=== PATIENT | male | born 1990 | race Caucasian/White ===

== ENCOUNTER 2020-07-15 18:44 | Emergency (ER) | payer BC, SELFPAY ==
[2020-07-15 19:29] VITALS: BP 125/77; PULSE 80; RESP 16; TEMP 36.7; O2SAT 97; BMI 59.4
--- NOTE | 2020-07-15 20:21 | ED.EXTPRO ---
HPI - Extremity Problem General Chief complaint: Extremity Injury, Upper <TOPHER Hendrix - Last Filed: 07/15/20 20:44> Stated complaint: Arm Numbness <TOPHER Hendrix - Last Filed: 07/15/20 20:44> Time Seen by Provider: 07/15/20 20:21 <TOPHER Hendrix - Last Filed: 07/15/20 20:44> Source: patient <TOPHER Hendrix - Last Filed: 07/15/20 20:44> Mode of arrival: ambulatory <TOPHER Hendrix - Last Filed: 07/15/20 20:44> Limitations: no limitations <TOPHER Hendrix - Last Filed: 07/15/20 20:44> History of Present Illness HPI Narrative: 29 y/o male with history of <TOPHER Hendrix - Last Filed: 07/15/20 20:44> MD Complaint: extremity pain <TOPHER Hendrix - Last Filed: 07/15/20 20:44> Onset (ago): week(s) (2) <TOPHER Hnedrix - Last Filed: 07/15/20 20:44> Pain Consistency: intermittent <TOPHER Hendrix - Last Filed: 07/15/20 20:44> Location: left and right <TOPHER Hendrix - Last Filed: 07/15/20 20:44> Severity scale (1-10): 5 <TOPHER Hendrix - Last Filed: 07/15/20 20:44> Quality: sharp <TOPHER Hendrix - Last Filed: 07/15/20 20:44> Radiation: distal <TOPHER Hendrix - Last Filed: 07/15/20 20:44> Relieving factors: rest <TOPHER Hendrix - Last Filed: 07/15/20 20:44> Exacerbating factors: palpation <TOPHER Hednrix - Last Filed: 07/15/20 20:44> Associated symptoms: denies other symptoms <TOPHER Hendrix - Last Filed: 07/15/20 20:44> Related Data Home medications: Previous Rx's Medication Instructions Recorded ibuprofen 600 mg PO Q8H PRN #30 tab 07/15/20 <TOPHER Hendrix - Last Filed: 07/15/20 20:44> Allergies/Adverse reactions: Allergies Allergy/AdvReac Type Severity Reaction Status Date / Time No Known Allergies Allergy Unverified 06/29/20 15:59 <TOPHER Hendrix - Last Filed: 07/15/20 20:44> Review of Systems Review of Systems: Constitutional: No Fever, No Chills ENT/Mouth: No sore throat, No Rhinorrhea, No Swallowing Difficulty Eyes: No Eye Pain, No Swelling, No Redness Cardiovascular: No Chest Pain or SOB, No Orthopnea Respiratory: No Cough, No Sputum, No Wheezing or dyspnea Gastrointestinal: No Nausea, No Vomiting, No Diarrhea, No abdominal Pain, No Hematochezia, No Melena Genitourinary: No Dysuria, No Urinary Frequency, No Hematuria Musculoskeletal: No joint pain, No Myalgias Skin: + skin Lesions (lipomas), No rash Neuro: No Weakness, No Numbness, No Dizziness, No Headache Psych: No Anxiety/Panic, No Depression Heme/Lymph: No Bruising, No Lymphadenopathy Endocrine: No Polyuria, No Polydipsia All other 10 point ROS are negative. <TOPHER Hendrix Last Filed: 07/15/20 20:44> FOR[facility]LY [facility], [facility] Past Medical History Medical History: Medical History (Updated 07/16/20 @ 00:00 by Gianluca Junior) Blood clot in vein Lipoma of arm MRSA (methicillin resistant Staphylococcus aureus) infection Pneumonia <TOPHER Hendrix Last Filed: 07/15/20 20:44> Surgical History: Surgical History (Updated 07/15/20 @ 19:39 by Meenakshi Grover) History of ankle surgery <TOPHER Hendrix Last Filed: 07/15/20 20:44> Social History Social History: Social History Alcohol intake: current Alcohol intake frequency: holidays/special occasions only Smoking Status: Current every day smoker Smoked in Last 30 Days: Yes Use of substances other than those prescribed or required for medical reasons: No Advance Directives: No Advance Directives Information Provided: No <TOPHER Hendrix Last Filed: 07/15/20 20:44> Physical Exam Vital Signs and I&O and Narrative: Vital Signs and I&O: Vital Signs Temp 98.1 F 07/15/20 19:29 Pulse 80 07/15/20 19:29 Resp 16 07/15/20 19:29 BP 125/77 07/15/20 19:29 Pulse Ox 97 07/15/20 19:29 Intake & Output 07/15/20 07/15/20 07/16/20 06:59 18:59 06:59 Weight 210 kg Body Mass Index 59.4 Appearance: Alert. Oriented X3. No acute distress. Eyes: Pupils equal, round and reactive to light. ENT: Pharynx normal. Neck: Normal inspection. Neck supple. CVS: Normal heart rate and rhythm. Pulses normal. Respiratory: No respiratory distress. Breath sounds normal. Abdomen: Soft and nontender. +BS x4 Skin: Skin warm and dry. Normal skin color. Normal skin turgor. No rashes. Extremities: bilateral mobile masses of distal biceps without tenderness, erythema or flutuance consistent with lipomas. Strength 5/5 UE, NV intact. Neuro: Oriented X 3. No motor deficit. No sensory deficit. Non-focal <TOPHER Hendrix - Last Filed: 07/15/20 20:44> Vital Signs and I&O: Vital Signs Temp 98.1 F 07/15/20 19:29 Pulse 80 07/15/20 19:29 Resp 16 07/15/20 19:29 BP 125/77 07/15/20 19:29 Pulse Ox 97 07/15/20 19:29 Intake & Output 07/15/20 07/15/20 07/16/20 06:59 18:59 06:59 Weight 210 kg Body Mass Index 59.4 <Dangelo Rae DO - Last Filed: 07/16/20 01:22> Course Course Hospital Course: acute on chronic UE pain with intermittent tingling, possibly due to lipomas on upper extremities compressing a nerve. doubt DVT, no other signs and no risk factors. He has no focal decifits on exam and strength is normal. He has no PCP and would like a referral to one as well as a surgeon for removal of the lipomas. Will start trial of NSAID to help with inflammation. patient agrees with plan. stable for d/c. <TOPHER Hendrix - Last Filed: 07/15/20 20:44> MDM - Extremity (Nontraumatic) Differential Diagnosis Differential diagnosis: Likely cellulitis, superficial thrombophlebitis and deep venous thrombosis of upper extremity <TOPHER Hendrix Last Filed: 07/15/20 20:44> Discharge Plan Discharge Clinical Impression: Paresthesia and pain of both upper extremities, Lipoma of arm <TOPHER Hendrix Last Filed: 07/15/20 20:44> Patient Disposition: Home, Self-Care <TOPHER Hendrix - Last Filed: 07/15/20 20:44> Instructions: Paresthesia (ED), Lipoma (ED) <TOPHER Hendrix Last Filed: 07/15/20 20:44> Additional Instructions: Come back to the ER or call 911 if you develop weakness, persistent numbness, loss of function of your arms or hands. Follow up with a Primary Care Doctor and a Surgeon for removal of the lipomas. <TOPHER Hendrix - Last Filed: 07/15/20 20:44> Prescriptions: New ibuprofen 600 mg tablet 600 mg PO Q8H PRN (Reason: pain) Qty: 30 RF: 0 <TOPHER Hendrix Last Filed: 07/15/20 20:44> Referrals: Jonathan Cain MD [Physician] - 2 days <TOPHER Hendrix Last Filed: 07/15/20 20:44> Interventions: ED Discharge Assessment Last Done: 07/15/20 21:26 <TOPHER Hendrix Last Filed: 07/15/20 20:44> Discharge Date/Time: 07/15/20 21:10 <TOPHER Hendrix Last Filed: 07/15/20 20:44>
== END 2020-07-15 21:10 | disposition home or self-care (01) ==
PROVIDERS: Emergency Provider Emergency Medicine
DX: R20.2 Paresthesia of skin (principal); M79.602 Pain in left arm; M79.601 Pain in right arm; D17.22 Benign lipomatous neoplasm of skin and subcutaneous tissue of left arm; D17.21 Benign lipomatous neoplasm of skin and subcutaneous tissue of right arm; F17.200 Nicotine dependence, unspecified, uncomplicated; Z86.718 Personal history of other venous thrombosis and embolism; Z86.14 Personal history of Methicillin resistant Staphylococcus aureus infection
CPT/HCPCS: 99283; 99284

== ENCOUNTER 2020-11-04 14:56 | Emergency (ER) | payer BC, SELFPAY ==
[2020-11-04 15:01] VITALS: BP 162/90; PULSE 90; RESP 18; TEMP 36.4; O2SAT 98; BMI 28.2
--- NOTE | 2020-11-04 15:21 | ED_ITS ---
HPI - General Adult General Chief complaint: General Medical Stated complaint: sinus infection Time Seen by Provider: 11/04/20 15:04 Source: patient Mode of arrival: ambulatory Limitations: no limitations History of Present Illness HPI narrative: 29 yo male here with sinus pressure/pain/SÁNCHEZ, nasal congestion x several days. No cough, fever, chills, ear pain, sore throat. Onset (ago): day(s) Related Data Previous Rx's Medication Instructions Recorded ibuprofen 600 mg PO Q8H PRN #30 tab 07/15/20 amoxicillin-pot clavulanate 1 tab PO BID #14 tab 11/04/20 [Augmentin] ibuprofen 600 mg PO Q8H PRN #20 tab 11/04/20 prednisone 40 mg PO DAILY #10 tab 11/04/20 Allergies Allergy/AdvReac Type Severity Reaction Status Date / Time No Known Allergies Allergy Unverified 06/29/20 15:59 Review of Systems Review of Systems: Yes all other systems are reviewed and are negative Constitutional: Constitutional: Reports no additional constitutional complaints, Denies body ache(s), Denies chills, Denies fever(s), Denies headache(s) and Denies weakness Eyes: Eyes: Reports no additional eye complaints and Denies change in vision ENT: Reports system reviewed and no additional complaints, except as documented, Denies dizziness, Denies headache(s), Reports nasal congestion, Denies nasal discharge, Denies neck pain, Reports sinus pain and Reports sinus pressure Cardiovascular: Cardiovascular: Reports no additional cardiovascular complaints, Denies chest pain, Denies leg edema and Denies dyspnea Respiratory: Respiratory: Reports no additional respiratory complaints, Denies cough and Denies dyspnea Gastrointestinal: Gastrointestinal: Reports no additional gastrointestinal complaints, Denies abdominal pain, Denies diarrhea, Denies nausea and Denies vomiting Genitourinary: Genitourinary: Denies urinary incontinence Musculoskeletal: Musculoskeletal: Reports no additional musculoskeletal complaints, Denies back pain, Denies arthralgias, Denies joint swelling, Denies neck pain, Denies numbness and Denies tingling Integumentary/Breasts: Skin/Breast: Reports system reviewed and no additional complaints, except as docu and Denies rash Neurologic: Reports system reviewed and no additional complaints, except as documented, Denies Abnormal speech present, Denies dizziness, Denies headache (s), Denies numbness, Denies tingling and Denies weakness PMF Past Medical History Attestation statement: The following information was validated with the patient. Source: old records reviewed and nursing notes reviewed Medical History Blood clot in vein Lipoma of arm MRSA (methicillin resistant Staphylococcus aureus) infection Pneumonia Surgical History History of ankle surgery Social History Social History Alcohol intake: current Alcohol intake frequency: holidays/special occasions only Smoking Status: Current every day smoker Advance Directives: No Advance Directives Information Provided: Yes Physical Exam Vital Signs: Vital Signs: Last Vital Signs Temp 97.6 F 11/04/20 15:01 Pulse 90 11/04/20 15:01 Resp 18 11/04/20 15:01 BP 162/90 H 11/04/20 15:01 Pulse Ox 98 11/04/20 15:01 Body Mass Index 28.2 Const: General: cooperative, healthy appearing, comfortable and no acute distress Orientation/consciousness: patient oriented x3 Limitations: no limitations HENMT: Head: Yes normal to inspection Ears: hearing grossly normal bilaterally General nose exam: Normal external nose present and Abnormal mucous membranes and turbinates present (erythema ) erythematous Face and sinus: Yes normal facial exam and Yes sinus tenderness (frontal/maxillary tenderness) Mouth: Normal oral and palatal mucosa present Throat: Yes posterior oropharynx normal Eyes: General: appearance normal, both eyes and all related structures Pupils: Equal, round and reactive pupils present Neck: Neck: Yes normal visual inspection Chest: Chest palpation & inspection: normal inspection of the chest Resp: Effort & Inspection: normal respiratory effort Auscultation: clear to auscultation bilaterally Cardio: Rate: regular rate Rhythm: regular rhythm Peripheral pulses: Peripheral pulses 2+ throughout GI: Inspection: Yes normal to inspection Palpation (GI): Soft to palpation and nontender Auscultation: normal bowel sounds Back/Spine/Pelvis: Thoracic/Lumbar Spine: thoracic and lumbar spine normal to inspection Skin: General skin exam: no rashes or lesions noted Neuro: General: patient oriented x3, no focal motor deficits and normal sensation to monofilament Cranial nerves: Yes Equal, round and reactive pupils present Cognition (Neuro): normal cognition Speech: No Abnormal speech present Gait exam (Neuro): Normal gait present Motor exam (neuro): 5/5 motor strength present throughout Extrem: General: Yes normal to inspection Course Course Course Narrative: Exam consistent with sinusitis. Reviewed worrisome signs and symptoms and when to return to the emergency department. Comfortable discharge home. Discharge Plan Discharge Clinical Impression: Sinusitis Qualifiers: Sinusitis location: frontal Chronicity: acute Recurrence: non-recurrent Qualified Code(s): J01.10 - Acute frontal sinusitis, unspecified Patient Disposition: Home, Self-Care Instructions: Sinusitis (ED) Prescriptions: New amoxicillin-pot clavulanate [Augmentin] 875-125 mg tablet 1 tab PO BID Qty: 14 RF: 0 prednisone 20 mg tablet 40 mg PO DAILY Qty: 10 RF: 0 ibuprofen 600 mg tablet 600 mg PO Q8H PRN (Reason: fever or pain) Qty: 20 RF: 0 No Action ibuprofen 600 mg tablet 600 mg PO Q8H PRN (Reason: pain) Qty: 30 RF: 0 Referrals: Physician,Unknown [Primary Care Provider] - 2 days Interventions: ED Discharge Assessment Last Done: 11/04/20 15:28 Discharge Date/Time: 11/04/20 15:30
== END 2020-11-04 15:30 | disposition home or self-care (01) ==
PROVIDERS: Emergency Provider Internal Medicine
DX: J01.10 Acute frontal sinusitis, unspecified (principal); F17.200 Nicotine dependence, unspecified, uncomplicated; Z79.899 Other long term (current) drug therapy
CPT/HCPCS: 99283

== ENCOUNTER 2021-03-12 05:14 | Inpatient (IN) | payer OTHER, SELFPAY ==
[2021-03-12] VITALS (8 sets, daily range): RESP 16–22; BMI 29.0
[2021-03-12] MEDS: Haloperidol Lactate 5 MG/ML VIAL IM (06:05)
[2021-03-12] MEDS: LORazepam 2 MG/ML VIAL IM (06:06)
--- NOTE | 2021-03-12 06:10 | PC.NURSE ---
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
--- NOTE | 2021-03-12 06:51 | PC.NURSE ---
Patient in bed appears sleeping, respiration +/=/non-labored bilaterally, Police left, plan to have him assessed by [facility] team, will continue to monitor.
--- NOTE | 2021-03-12 09:23 | ECG_ITS ---
Test Reason : MED CLEARANCE Blood Pressure : / mmHG Vent. Rate : 084 BPM Atrial Rate : 084 BPM P-R Int : 148 ms QRS Dur : 092 ms QT Int : 350 ms P-R-T Axes : 072 049 015 degrees QTc Int : 413 ms Normal sinus rhythm Normal ECG When compared with ECG of 01-MAY-2014 16:45, No significant change was found Referred By: Warner Magallanes Electronically Signed By:DAVID SOTO
--- NOTE | 2021-03-12 09:34 | PC.NURSE ---
hpd dropped off pt's keys and wallet, no $. secured in pt's locker #6
--- NOTE | 2021-03-12 09:55 | MHC.CARE ---
51A filed. Pt not aware. CARE Team notified Pts , Arin.
--- NOTE | 2021-03-12 13:04 | PC.NURSE ---
[employer] in to see the pt and serve a suspencion of his [employer] license, paperworkleft in locker #6
[2021-03-12 13:25] LABS: MANUAL DIFF FLAG NO
[2021-03-12 13:28] LABS: Basophils Percent Auto 0.4 % (0-2); Eosinophils Absolute Auto 0.2 X10*3/uL (0.0-0.4); Eosinophils Percent Auto 4.6 % (0-4); Hematocrit 44.6 % (42-52); Hemoglobin 15.5 g/dl (14.0-18.0); Lymphocytes Percent Auto 40.8 % (20-40); Mean Corpuscular HGB Conc 34.8 g/dl (31.0-36.0); Mean Corpuscular Hemoglobin 30.3 pg (27.0-33.0); Mean Corpuscular Volume 87.1 fL (80-98); Mean Platelet Volume 9.3 fL (9.4-12.4); Monocytes Absolute Auto 0.4 X10*3/uL (0.1-1.2); Neutrophils Absolute Auto 2.3 X10*3/uL (2.0-8.3); Neutrophils Percent Auto 46.2 % (45-73); Platelet Count 232 X10*3/uL (160-400); Red Blood Count 5.12 X10*6/uL (4.60-5.80); Red Cell Distribution Width 12.5 % (11.0-16.0)
--- NOTE | 2021-03-12 13:30 | PC.NURSE ---
blood drawn, pt refused covid test, states that he will not allow it and that he knows how things work and I'll do my time here for a couple days and then sign myself out . pt aware that he's not able to leave
[2021-03-12 13:50] LABS: Alanine Aminotransferase 39 U/L (0-40); Albumin Level 4.4 g/dL (3.5-5.0); Alkaline Phosphatase 71 U/L (39-117); Anion Gap 11 (12-20); Aspartate Amino Transferase 36 U/L (5-37); Bilirubin Direct 0.3 mg/dL (0.0-0.5); Bilirubin Total 0.9 mg/dL (0.0-1.0); Blood Urea Nitrogen 9 mg/dL (9-16); Calcium 9.1 mg/dL (8.4-10.2); Carbon Dioxide 28 mmol/L (22-29); Chloride 108 mmol/L (96-108); Creatinine Clr Calc Pharmacy 119.8; Estimated Glomerular Filt Rate > 60; Glucose Random 91 mg/dL (60-115); Potassium 4.2 mmol/L (3.3-5.1); Sodium 143 mmol/L (135-145); Total Protein 7.1 g/dL (6.5-8.0)
--- NOTE | 2021-03-12 15:12 | PC.NURSE ---
Report taken from Russell rn. Per Russell: pt is extremely aggressive with staff and was given 5mg Haldol and 2mg Ativan prior to 7am shift change. Pt has slept most of the morning. pt is now 12 inpatient bedsearch. [employer] suspended [facility], 51a was filed. Pt is not aware. pt refuses ekg and covid swab because i know how this work's i'll wait three days then sign myself out . plan at this time is for patient to remain at [facility] on section [facility]. During initial rounds; pt was easily awoken to voice and shook head when asked if he needed anything. Plan at this time is to monitor needs and occasionally offer VS/COVID swab/EKG when ambulating around milieu.
--- NOTE | 2021-03-12 16:27 | PC.NURSE ---
pt out in milieu area. pt requesting to be discharged home. Inpatient/section 12 bed search reexplained to patient. Pt stated I want to make moves to get out of here. pt began washing face and neck in sink. 1629: pt agreeable to covid swab and EKG at this time. Swab collected and [facility] sent out to grab ekg machine.
--- NOTE | 2021-03-12 16:40 | PC.NURSE ---
security called. pt's father/brothers are in waiting room seeking visitation. at this time, one visitor will be allowed at a time, after belongings were searched by security. older brother now in pod. monitoring on cameras at this time.
[2021-03-12 16:51] LABS: COVID-19 Test Negative (Negative); IDNOW Serial# 9DD0AD1C
--- NOTE | 2021-03-12 20:07 | PC.NURSE ---
Patient in bed appears sleeping, no distress observed/reported, will continue to monitor
--- NOTE | 2021-03-12 21:54 | PC.NURSE ---
Patient ate his supper, showered, changed attire, provided urine sample of UA, calm and quiet, denied distress, curretnly in bed lying, resting quietly, will continue to monitor.
[2021-03-12 22:17] LABS: Amphetamine Screen Urine Not Detected (Not Detect); Barbiturates, Urine Not Detected (Not Detect); Benzodiazepines Screen Urine Not Detected (Not Detect); Cannabinoid Screen Urine Not Detected (Not Detect); Cocaine Screen Urine Not Detected (Not Detect); Opiate Screen Urine Not Detected (Not Detect); Phencyclidine Screen Urine Not Detected (Not Detect)
[2021-03-13 04:25] VITALS: BP 130/82; PULSE 93; RESP 17; TEMP 36.6; O2SAT 96
--- NOTE | 2021-03-13 07:00 | PC.NURSE ---
patient appears to be asleep at present with even respirations patient appears in no distress, received report from prior RN.
[2021-03-13 08:23] VITALS: BP 135/88; PULSE 100; RESP 15; TEMP 36.7; O2SAT 100
[2021-03-13] MEDS: Acetaminophen 325 MG TABLET 650 MG PO (13:13)
--- NOTE | 2021-03-13 15:28 | MHC.CARE ---
CV reviewed and signed with pt. Plan for admission to inpt unit this evening.
[2021-03-13 19:14] VITALS: BP 134/91; PULSE 85; TEMP 36.7
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
[2021-03-13] MEDS: traZODone HCL 50 MG TABLET PO (21:25)
[2021-03-14 06:37] LABS: Glucose, Whole Blood 100 mg/dL (60-115)
[2021-03-14 08:27] VITALS: BP 130/86; PULSE 86; TEMP 36.6
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
[2021-03-14] MEDS: FLUoxetine HCl Oral Solution 20 MG/5 ML SOLUTION 10 MG PO (13:56)
[2021-03-14 18:00] VITALS: BP 125/77; PULSE 93; TEMP 36.4; O2SAT 97
[2021-03-14] MEDS: Melatonin 3 MG TABLET PO (21:15)
[2021-03-15] MEDS: Melatonin 3 MG TABLET PO ×2 (03:51→21:45)
[2021-03-15 04:57] LABS: Glucose, Whole Blood 105 mg/dL (60-115)
[2021-03-15 05:00] VITALS: BP 134/73; PULSE 75; TEMP 36.1; O2SAT 96
[2021-03-15] MEDS: FLUoxetine HCl 10 MG CAPSULE PO (09:12)
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
[2021-03-15 13:28] VITALS: BMI 29.0
[2021-03-15 18:00] VITALS: BP 130/82; PULSE 82; TEMP 36.4
[2021-03-16] MEDS: hydrOXYzine HCL 25 MG TABLET PO (00:21)
[2021-03-16] MEDS: Melatonin 3 MG TABLET PO (00:21)
[2021-03-16 06:20] VITALS: BP 120/65; PULSE 61; RESP 18; TEMP 36.6; O2SAT 97
[2021-03-16] MEDS: FLUoxetine HCl 10 MG CAPSULE PO (08:20)
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
--- NOTE | 2021-03-16 11:20 | P.DS_ITS ---
DS: Providers Provider Date of Service: 03/16/21 Date of admission: 03/13/21 16:10 Primary care physician: Lani Physician Attending physician on admission: Ahsan Painting Attending physician on discharge: Ahsan Painting DS: Diagnosis Discharge Diagnosis (1) Chronic post-traumatic stress disorder (PTSD): Status: Acute (2) Alcohol abuse: Status: Acute (3) MDD (major depressive disorder), recurrent episode, moderate: Status: Acute DS: Medications Discharge Medications Home Medications: Previous Rx's Medication Instructions Recorded fluoxetine 10 mg PO DAILY 30 Days #30 cap 03/16/21 hydroxyzine HCl 25 mg PO BEDTIME PRN 30 Days #60 03/16/21 tab melatonin 3 mg PO BEDTIME PRN 30 Days #30 tab 03/16/21 Discharge Plan Discharge Patient Disposition: Home, Self-Care Discharge Diagnosis: PTSD, chronic Referrals: Psych Prescriber: Maggie Archibald-[facility] [Other] - 04/04/21 11:00 am (You will receive an email with a link for video session ) Therapist: Stephanie Aguilera ([facility] [place]) [Other] - 03/17/21 11:30 am Jamari Ramirez PA [Physician [employer] [facility]] - 04/17/21 10:00 am (via phone) Discharge Medications: New melatonin 3 mg Tablet 3 mg PO BEDTIME PRN (Reason: insomnia) 30 Days Qty: 30 RF: 0 fluoxetine 10 mg Capsule 10 mg PO DAILY 30 Days Qty: 30 RF: 0 hydroxyzine HCl 25 mg Tablet 25 mg PO BEDTIME PRN (Reason: Anxiety) 30 Days Qty: 60 RF: 0 Discontinued ibuprofen 600 mg tablet 600 mg PO Q8H PRN (Reason: pain) Qty: 30 RF: 0 amoxicillin-pot clavulanate [Augmentin] 875-125 mg tablet 1 tab PO BID Qty: 14 RF: 0 prednisone 20 mg tablet 40 mg PO DAILY Qty: 10 RF: 0 ibuprofen 600 mg tablet 600 mg PO Q8H PRN (Reason: fever or pain) Qty: 20 RF: 0 Discharge Orders: Discharge Order (Routine); Ordered 03/16/21 Ordered By: Ahsan Painting Diet: regular diet Activity on Discharge: As tolerated Stand Alone Forms: Patient Portal Discharge page, Community Support Care Plan Goals: Maintain mood and safe behaviors Take medications as prescribed Continue to pursue sobriety Practice coping skills Continue with outpatient providers and reach out to them as needed Health Concerns: Mood instability and behaviors Depression and PTSD Plan of Treatment: Follow up with your PCP regarding?. (regarding above concerns) Take medications as prescribed Assessment: Risk assessment at time of discharge: Patient has been observed closely by nursing and unit staff throughout admission; patient has not engaged in any behaviors that suggest dangerousness to self or others and has demonstrated appropriate behaviors and impulse control. Patient was interviewed prior to discharge and found to be fully oriented and without any SI or HI. Patient has insight and demonstrates good judgment in terms of wanting to pursue treatment. Patient is not in imminent risk of harm to self or others and has a safety plan that includes presenting to the closest ER or calling 911 if feeling unsafe. Mental Status Exam Mental Status Exam Narrative: Pt is alert and oriented; behavior is cooperative, friendly and calm; patient is not in distress; dressed in casual attire with adequate hygiene; mood is described as good and affect congruent; eye contact appropriate; Speech is normal rate, volume and prosody and not pressured; no psychomotor agitation/retardation present; thought process is organized, linear, logical and goal directed. Thought content is on continuing treatment and otherwise pertinent to relevant topics and without any delusional content, paranoid ideations or grandiosity; denies any SI/HI. There is no evidence of perceptual disturbance. Patients insight and judgment appear intact. Data Data Completed and Pending Completed studies during hospitalization [Text1]: 03/12/21 03/12/21 03/12/21 13:19 13:19 16:31 WBC 5.0 RBC 5.12 Hgb 15.5 Hct 44.6 MCV 87.1 MCH 30.3 MCHC 34.8 RDW 12.5 Plt Count 232 MPV 9.3 L Immature Gran % (Auto) 0.0 Neut % (Auto) 46.2 Lymph % (Auto) 40.8 H [place] % (Auto) 8.0 Eos % (Auto) 4.6 H Baso % (Auto) 0.4 Lymph # (Auto) 2.0 [place] # (Auto) 0.4 Eos # (Auto) 0.2 Baso # (Auto) 0.0 Abs Immat Gran (auto) 0.00 Absolute Neuts (auto) 2.3 Absolute Nucleated RBC 0.000 Nucleated RBC % (auto) 0.0 Sodium 143 Potassium 4.2 Chloride 108 Carbon Dioxide 28 Anion Gap 11 L BUN 9 Creatinine 1.10 Estim Creat Clear Calc 119.8 Estimated GFR > 60 POC Glucose Random Glucose 91 Calcium 9.1 Total Bilirubin 0.9 Direct Bilirubin 0.3 AST 36 ALT 39 Alkaline Phosphatase 71 Total Protein 7.1 Albumin 4.4 Urine Opiates Screen Ur Barbiturates Screen Ur Phencyclidine Scrn Ur Amphetamines Screen U Benzodiazepines Scrn Urine Cocaine Screen U Marijuana (THC) Screen COVID-19 ([facility]) Negative COVID-19 Clin Com See Note 03/12/21 03/14/21 03/15/21 21:36 06:19 04:52 WBC RBC Hgb Hct MCV MCH MCHC RDW Plt Count MPV Immature Gran % (Auto) Neut % (Auto) Lymph % (Auto) [place] % (Auto) Eos % (Auto) Baso % (Auto) Lymph # (Auto) [place] # (Auto) Eos # (Auto) Baso # (Auto) Abs Immat Gran (auto) Absolute Neuts (auto) Absolute Nucleated RBC Nucleated RBC % (auto) Sodium Potassium Chloride Carbon Dioxide Anion Gap BUN Creatinine Estim Creat Clear Calc Estimated GFR POC Glucose 100 105 Random Glucose Calcium Total Bilirubin Direct Bilirubin AST ALT Alkaline Phosphatase Total Protein Albumin Urine Opiates Screen Not Detected Ur Barbiturates Screen Not Detected Ur Phencyclidine Scrn Not Detected Ur Amphetamines Screen Not Detected U Benzodiazepines Scrn Not Detected Urine Cocaine Screen Not Detected U Marijuana (THC) Screen Not Detected COVID-19 ([facility]) COVID-19 Clin Com DS: Summary Hospital Course Hospital Course: Patient is a 30-year-old combat with a history of PTSD, alcohol abuse presents dysregulated behavior in the face of psychosocial stress and chronic PTSD symptoms. Patient was admitted on a cv status for diagnosis of PtSD. Upon admission he denied any SI at all, but reported feeling depressed and strugglin g with Ptsd related anxiety; when asked about suicidal comments quoted while in the ED, patient said it is possible he said such things while intoxicated and emotional, but he denies any intent at all or history of attempt; pt sites and kids as strong protective factors. Pt was very remorseful about his recent behaviors and was willing to for the first time, start a medication for ptsd/depression. Patient was forthcoming about symptoms and struggles he has had with PTSD. He was started on Prozac which was well tolerated. Pt's depression abated and his mood significantly improved; pt's anxiety lessened and his affect brightened. Patient continued to deny any suicidal or homicidal ideation during admission and demonstrated appropriate behaviors and impulse control on the unit.Pt felt ready for discharge, reporting good mood, no depression and eager to continue treatment both with his outpatient therapist and with pending psychiatric appointment. Patient said he is a little anxious to go home, knowing that he and his have a lot to talk about and work through, but he feels ready to do so. Digital Communications Manager called patient's who reported that she feels patient is safe to return home and is not suicidal. All firearms have been removed from the house which has been verified by web content & social media manager. Patient is not in imminent risk for harm to self or others and does not meet criteria for involuntary commitment. Patient's request for discharge was honored. He returns home to his and children and [facility]. Time spent discussing smoking cessation with patient: 3 to 10 minutes (Patient has quit smoking cigarettes and currently will only smoke 1 once in a while if with a friend.) Status at Discharge Functional status at discharge: independent ambulation Overall status at discharge: patient is back to baseline Time Spent with Patient Time attestation: Total time spent providing and/or coordinating discharge services: Time spent: Greater than 30 minutes
== END 2021-03-16 13:31 | disposition home or self-care (01) | DRG 885 ==
LOC: HO.ED 03-13 08:48 → HO.PM5 03-13 16:34
PROVIDERS: Physician Assistant; Admitting Provider Psychiatry & Neurology Psychiatry; Emergency Provider Emergency Medicine; Visit Provider Psychiatry & Neurology Psychiatry
DX: F33.1 Major depressive disorder, recurrent, moderate (principal); R45.851 Suicidal ideations; F43.12 Post-traumatic stress disorder, chronic; F10.129 Alcohol abuse with intoxication, unspecified; Z20.822 Contact with and (suspected) exposure to COVID-19; Z79.899 Other long term (current) drug therapy
CPT/HCPCS: 36415; 80053; 80076; 80307; 82947; 85025; 87635; 93005; 96372; 99285; J2060